=== PATIENT | female | born 2000 | race African-American/Black ===

== ENCOUNTER 2023-09-26 18:38 | Emergency (ER) | payer OTHER, SELFPAY ==
[2023-09-26 18:49] VITALS: BP 135/92
--- NOTE | 2023-09-26 19:06 | ED.GENMED ---
History of Present Illness
General
Chief Complaint: Dental Problem
Source: patient
Exam Limitations: none
Time Seen by Provider: 09/26/23 18:54
Travel History
Have you had any contact with someone who has COVID-19?: No
Do you have any symptoms of coronavirus? Fever > 100 degrees, chills, cough, shortness of breath, sore throat, loss of taste or smell, muscle aches, or headache?: No
History of Present Illness
History of Present Illness:
This is a 23 year old female that comes in with c/o left lower mouth pain. States that she just started today with pain in the mouth. States that she feels like she can't relax her jaw. Patient took Ibuprofen 600mg 1.5 hours ago. States that she
also vomited and has a headache. Denies any fever, chills, chest pain, SOB, diarrhea, abd pain, dizziness, urinary burning.
Past History
Past History
ED Past Medical History: None; Negative Asthma, HTN, Hypercholesterolemia or NIDDM
ED Past Surgical History: Orthopedic (Right knee ACL)
Social History
Tobacco: Smoker
Alcohol: None
Personal: Single (same sex Partner)
Living: with family
Review of Systems
Review of Systems
All Other Systems: ROS reviewed and negative except as documented in HPI and ROS
Constitutional: Reports no symptoms; Denies fever or chills
EENT: Reports other (Left lower mouth pain)
Respiratory: Reports no symptoms
Cardiac: Reports no symptoms
ABD/GI: Reports vomiting; Denies abdominal pain or diarrhea
: Reports no symptoms
Musculoskeletal: Reports no symptoms
Skin: Reports no symptoms
Neurological: Reports headache; Denies dizzy
Psychiatric: Reports no symptoms
Phy Exam
General Physical Exam
General Presentation: mild distress
General age: appears stated age
General Skin: warm and dry
General Habitus: normal
General Mental: alert
General Hydration: appears well hydrated
ENT Exam
ENT Exam: TM's normal, pharynx normal, neck supple and other (Left posterior # 17 tooth broken. Negative for any redness of the gum line or swelling. )
Eye Exam
Eye Exam: EOMI
Cardiovascular Exam
Cardiovascular Exam: regular rate/rhythm
Pulmonary Exam
Pulmonary Exam: lungs clear, no respiratory distress, no rales, chest non tender, no crackles, no rhonchi, no wheezing and no cough
Musculoskeletal Exam
Musculoskeletal Exam: full ROM
Skin Exam
Skin Exam: normal color, warm/dry, no rash and no petechia
Psychiatric Exam
Psychiatric Exam: normal mood/affect
Course
Orders/Labs/Results
Orders:
Orders
09/26/23 19:03
Acetaminophen [Tylenol] 1,000 mg PO NOW STA
09/26/23 19:04
Penicillin V Potassium [Pen Vk] 500 mg PO NOW STA
09/26/23 19:[address] Non Medication Order As Directed
Physician Order: Ice bag
Vital Signs
Initial and Last Documented VS:
Initial Vital Signs
Temp Pulse Resp BP Pulse Ox
97.9 F 102 17 135/92 98
09/26/23 18:49 09/26/23 18:49 09/26/23 18:49 09/26/23 18:49 09/26/23 18:49
Last Documented Vital Signs
Temp Pulse Resp BP Pulse Ox
97.9 F 102 17 135/92 98
09/26/23 18:49 09/26/23 18:49 09/26/23 18:49 09/26/23 18:49 09/26/23 18:49
MDM/Problems Addressed
Differential Diagnosis Includes:
Dental abscess. Tooth cracked and broken
MDM/Problems Addressed:
This is a 23 year old female that comes in with c/o pain in the left lower mouth. States that this started today and she took Ibuprofen
Will give Oral antibiotics and have patient alternate with Tylenol 1000mg and Ibuprofen 600mg every 6 hours with food. Patient can also use ice to the jaw. Patient to follow up with the Dentist for further evaluation. Return with any concerns.
Chronic conditions affecting care:
NA
Acute Exacerbation and/or Progression of Chronic Illness:
NA
*Pulse Oximetry
Patient hypoxic: no
*EKG
Interpreted by ED Provider?: NA
Rate: EKG- N/A
*Ophthalmic Pathologist Interpretation
Rate: Ophthalmic Pathologist- N/A
*Critical Care Note
Total Time (30-74mins, 75-104mins- exclusive of procedures): Not Applicable
ED Attending Note
-
Portions of this chart may have been created with voice recognition software.� Occasional wrong word or��sound alike� substitutions may have occurred due to the inherent limitations of voice recognition software.
Discharge Plan
Departure
Patient Disposition: Home (Routine Discharge)
Date of Disposition: 09/26/23
Time of Disposition: 19:14
Patient with high blood pressure during this ER visit?: Yes
Condition: Good
Covid-19: Not Applicable
Discharge Problem:
Pain, dental
Instructions: Fractured Tooth (DC), Dental Pain (DC), BLOOD PRESSURE
Prescriptions:
New
penicillin V potassium 500 mg tablet
500 mg PO QID Qty: 39 0RF
ondansetron 4 mg tablet,disintegrating
4 mg PO Q8H PRN (Reason: nausea and vomiting) Qty: 7 0RF
Referrals:
Dl Long, SHEY [Active] - Follow up in 2-3 days
Activity Restrictions/Additional Instructions:
As discussed, it appears that your tooth is broken. You will need to see an Oral surgeon for further evaluation. You have been started on antibiotics here and a prescription for pain. Please use Tylenol 1000mg every 6 hours and alternate with
Ibuprofen 600mg every 6 hours with food. So if you take Tylenol at 9am the ibuprofen will be due at 12 noon, Tylenol at 3pm and the Ibuprofen at 6pm. Follow up with the Oral surgeon. You have also been given a prescription for Zofran that will help
with any nausea/vomiting. IF YOU HAVE ANY OTHER CONCERNS PLEASE RETURN TO THE EMERGENCY ROOM.
Interventions
Interventions:
*Risk Screen - Suicide Last Done: 09/26/23 18:50
*General Assessment Last Done: 09/26/23 18:50
*Neglect/Abuse Screening Last Done: 09/26/23 18:50
*ED COVID-19 Vaccine History Last Done: 09/26/23 18:50
[2023-09-26 19:37] VITALS: BMI 19.2
[2023-09-26] MEDS: TYLENOL 1000 MG PO (19:37)
[2023-09-26] MEDS: PEN VK 500 MG PO (19:38)
[2023-09-26] MEDS: ZOFRAN ODT (ORALLY DISINTEGRATING) 4 MG PO (19:38)
[2023-09-26] MEDS: ROXICODONE 5 MG PO (19:38)
[2023-09-26 19:42] VITALS: BP 127/90
== END 2023-09-26 19:51 | disposition home or self-care (01) ==
LOC: EMR 18:38
PROVIDERS: EMERGENCY PHYSICIAN Emergency Medicine
DX: K08.89 Other specified disorders of teeth and supporting structures (principal); F17.200 Nicotine dependence, unspecified, uncomplicated; I10 Essential (primary) hypertension
CPT/HCPCS: 99283

== ENCOUNTER 2023-12-15 16:10 | Emergency (ER) | payer SELFPAY ==
[2023-12-15 16:14] VITALS: BP 131/87
--- NOTE | 2023-12-15 16:43 | ED.GENMED ---
History of Present Illness
<Soraida Rodríguez PA-C - Last Filed: 12/15/23 19:54>
General
Chief Complaint: Dental Problem
Source: patient
Exam Limitations: none
Time Seen by Provider: 12/15/23 16:40
Nursing documentation reviewed up to this point in time: agreed with
Travel History
Have you had any contact with someone who has COVID-19?: No
Do you have any symptoms of coronavirus? Fever > 100 degrees, chills, cough, shortness of breath, sore throat, loss of taste or smell, muscle aches, or headache?: No
History of Present Illness
History of Present Illness:
This is a 23 y/o female with a past medical history of dental infection presenting emergency department today with concerns of bilateral dental pain. Patient states that has been going on for about a month, but the past week has gotten a lot worse.
Patient is from [place] but is visiting [place] to visit her girlfriend. Patient denies any fevers or chills, any swelling in the, any trouble breathing, any trouble swallowing. Patient denies any swelling around the jaw. Patient denies any
difficulty eating. Patient states that she does follow with a dentist but she could not get an appointment for many months later. Patient states that she did crack a tooth while grinding her teeth around a month or two ago and has not been able to
get in dentist to have it fixed. He denies any intraoral bleeding.
Past History
<Soraida Rodríguez PA-C - Last Filed: 12/15/23 19:54>
Past History
ED Past Medical History: None; Negative Asthma, HTN, Hypercholesterolemia or NIDDM
ED Past Surgical History: Orthopedic (Right knee ACL)
Social History
Tobacco: Smoker
Alcohol: None
Personal: Single (same sex Partner)
Living: with family
Review of Systems
<Soraida Rodríguez PA-C - Last Filed: 12/15/23 19:54>
Review of Systems
All Other Systems: ROS reviewed and negative except as documented in HPI and ROS
Phy Exam
<Soraida Rodríguez PA-C - Last Filed: 12/15/23 19:54>
Physical Exam
Physical Exam:
General: Patient is well appearing and in no acute distress; non-toxic
Skin: Warm and dry, no rashes or lesions
Head: Normocephalic, atraumatic
Eyes: Sclera non-icteric. EOMs intact. PERRLA.
Mouth: Extensive decay noted throughout teeth. No gingival abscess noted. No tenderness to palpation to the floor of the mouth. Tenderness to palpation noted of teeth 32 and 17 with extensive caries. Tooth 17 is cracked.
Neck: No cervical lymphadenopathy.
Cardiac: Regular rate
Pulm: Normal respiratory effort
Musculoskeletal: Full range of motion of bilateral TMJ joints with no palpable clicking or popping. No tenderness to palpation of the jaw. No submandibular swelling.
Neuro: CN II-XII intact, no focal neurologic deficits.
Psychiatric: Appropriate mood and affect.
Course
<Soraida Rodríguez PA-C - Last Filed: 12/15/23 19:54>
Orders/Labs/Results
Orders:
Orders
12/15/23 17:41
Amoxicillin [Amoxil] 500 mg PO NOW STA
Vital Signs
Initial and Last Documented VS:
Initial Vital Signs
Temp Pulse Resp BP Pulse Ox
98.3 F 84 20 131/87 99
12/15/23 16:14 12/15/23 16:14 12/15/23 16:14 12/15/23 16:14 12/15/23 16:14
Last Documented Vital Signs
Temp Pulse Resp BP Pulse Ox
98.3 F 82 16 128/77 99
12/15/23 16:14 12/15/23 17:38 12/15/23 17:38 12/15/23 17:38 12/15/23 17:38
<Avelino Ash MD - Last Filed: 12/15/23 18:25>
Orders/Labs/Results
Orders:
Orders
12/15/23 17:41
Amoxicillin [Amoxil] 500 mg PO NOW STA
Vital Signs
Initial and Last Documented VS:
Initial Vital Signs
Temp Pulse Resp BP Pulse Ox
98.3 F 84 20 131/87 99
12/15/23 16:14 12/15/23 16:14 12/15/23 16:14 12/15/23 16:14 12/15/23 16:14
Last Documented Vital Signs
Temp Pulse Resp BP Pulse Ox
98.3 F 82 16 128/77 99
12/15/23 16:14 12/15/23 17:38 12/15/23 17:38 12/15/23 17:38 12/15/23 17:38
<Soraida Rodríguez PA-C - Last Filed: 12/15/23 19:54>
MDM/Problems Addressed
Differential Diagnosis Includes:
Dental caries, dental abscess, pulpitis, Mauricio's angina, TMJ syndrome, sialadenitis
MDM/Problems Addressed:
dental pain
Chronic conditions affecting care:
tooth decay
<Soraida Rodríguez PA-C - Last Filed: 12/15/23 19:54>
*Pulse Oximetry
Patient hypoxic: no
*Critical Care Note
Total Time (30-74mins, 75-104mins- exclusive of procedures): Not Applicable
<Soraida Rodríguez PA-C - Last Filed: 12/15/23 19:54>
Patient Management
Escalation/DeEscalation of care consider admission/obs:
This is a 23 y/o female with a past medical history of dental infection presenting emergency department today with concerns of bilateral dental pain. On physical exam, she has bilateral dental caries and pain to palpation at posterior molars. No
concern for Mauricio angina at this time, no concern for any other deep space infection. History and physical exam consistent with dental infection. I discussed with patient the importance of dental follow-up and how she needs to see a dentist as
soon as possible. Offered [facility]. Patient will be sent home on a course amoxicillin. Patient stable for discharge
ED Attending Note
<Soraida Rodríguez PA-C - Last Filed: 12/15/23 19:54>
-
Portions of this chart may have been created with voice recognition software.� Occasional wrong word or��sound alike� substitutions may have occurred due to the inherent limitations of voice recognition software.
<Avelino Ash MD - Last Filed: 12/15/23 18:25>
ED Attending Note
Patient seen and examined by attending physician: Yes
I performed the substantive portion of visit, reviewed & personally made and approve the management plan that is documented in note by myself or TERRENCE.: Yes
ED Attending Note:
Ongoing bilateral dental issues. Complaining of some facial tightness and some swelling earlier. Swelling improved with ice. No airway issues or swallowing issues no high fever. No speech issues.
On exam patient is nontoxic in no distress. Airway is clear. No drooling no stridor. No neck swelling. No trismus. No marbled speech. She has significant caries to the bilateral lower molars. No obvious periodontal abscess.
Clinically this needs dental follow-up. This was stressed to the patient. Antibiotics will be covered or stressed that this does not resolve the problem. Also indications for returning immediately for reevaluation's were discussed
Discharge Plan
Departure
Patient Disposition: Home (Routine Discharge)
Date of Disposition: 12/15/23
Time of Disposition: 17:32
Patient with high blood pressure during this ER visit?: Yes
Condition: Good
Discharge Problem:
Pain, dental
Instructions: Tooth Decay, Adult (DC), Fractured Tooth (DC), Dental Pain (DC), BLOOD PRESSURE
Prescriptions:
New
amoxicillin 500 mg capsule
500 mg PO TID 7 Days Qty: 21 0RF
No Action
penicillin V potassium 500 mg tablet
500 mg PO QID Qty: 39 0RF
ondansetron 4 mg tablet,disintegrating
4 mg PO Q8H PRN (Reason: nausea and vomiting) Qty: 7 0RF
risperidone [Risperdal] 4 mg Tablet
1 mg PO DAILY
risperidone [Risperdal] 3 mg Tablet
3 mg PO HS
Activity Restrictions/Additional Instructions:
This problem will continue to reoccur until you receive dental work. Please follow up with your dentist in [place] as soon as possible. [facility] also has a dental clinic: you can call [phone] to schedule an appointment.
Amoxicillin has been sent to your pharmacy. Please take one tablet every 8 hours for 7 days.
PLEASE RETURN TO THE EMERGENCY DEPARTMENT SHOULD YOU EXPERIENCE SHORTNESS OF BREATH, LIP OR TONGUE SWELLING, INABILITY TO MOVE THE JAW, JAW SWELLING, NECK SWELLING, OR ANY OTHER CONCERNING SIGNS OR SYMPTOMS.
Interventions
Interventions:
*Risk Screen - Suicide Last Done: 12/15/23 16:14
*General Assessment Last Done: 12/15/23 16:14
*Neglect/Abuse Screening Last Done: 12/15/23 16:14
ED- Fall Risk Assessment Last Done: 12/15/23 17:38
*ED COVID-19 Vaccine History Last Done: 12/15/23 16:48
*Nursing Disposition Last Done: 12/15/23 17:49
Discharge Date and Time
Discharge Date/Time: 12/15/23 17:50
Print Language: TURKISH
[2023-12-15 17:38] VITALS: BP 128/77
[2023-12-15] MEDS: AMOXIL 500 MG PO (17:47)
== END 2023-12-15 17:50 | disposition home or self-care (01) ==
LOC: EMR 16:10
PROVIDERS: EMERGENCY PHYSICIAN Emergency Medicine
DX: K08.89 Other specified disorders of teeth and supporting structures (principal); R22.0 Localized swelling, mass and lump, head; K02.9 Dental caries, unspecified; K03.81 Cracked tooth; F17.200 Nicotine dependence, unspecified, uncomplicated; R03.0 Elevated blood-pressure reading, without diagnosis of hypertension
CPT/HCPCS: 99283